=== PATIENT | male | born 1955 | race Caucasian/White ===

== ENCOUNTER 2024-10-14 12:11 | Emergency (ER) | payer MEDICARE, SELFPAY ==
[2024-10-14 12:15] VITALS: BP 156/72; PULSE 76; RESP 13; TEMP 36.7; O2SAT 92
[2024-10-14 12:28] VITALS: BP 156/72; PULSE 76; RESP 13; TEMP 36.7; O2SAT 92
--- NOTE | 2024-10-14 12:36 | W.ED.GENAD ---
Discharge Plan Disposition Patient Disposition: Home Discharge Details Clinical Impression: Blister of foot, left, infected, Peripheral vascular disease Primary Care Provider: Anita,Local ED Provider: Keny Field Home Meds and New Rx's Prescriptions: New clindamycin HCl [Cleocin HCl] 150 mg capsule 450 mg PO Q8H 14 Days Qty: 126 0RF Continued acetaminophen-codeine [Tylenol-Codeine #2] 1 tab PO BID PRN amiodarone 200 mg tablet 200 mg PO DAILY Eliquis 5 mg tablet 5 mg PO BID aspirin 81 mg capsule 81 mg PO DAILY cholecalciferol (vitamin D3) 25 mcg (1,000 unit) capsule 50 mcg PO DAILY oxybutynin chloride 5 mg tablet 10 mg PO DAILY pravastatin 40 mg tablet 40 mg PO DAILY prednisone 10 mg tablet 10 mg PO DAILY Ozempic 2 mg/dose (8 mg/3 mL) pen injector 2 mg subcut QWEEK Rx Instructions: for 4 weeks tamsulosin [Flomax] 0.4 mg capsule 0.4 mg PO DAILY venlafaxine 150 mg capsule,extended release 24hr 150 mg PO DAILY Discharge Instructions Instructions: Wound Infection Additional Instructions: You were seen in the emergency department for your foot swelling and redness. You have a blister and concerns for the possibility of a diabetic foot ulcer. We discussed whether or not to obtain an MRI scan and blood work. You elected to try antibiotics alone. As we discussed if you develop pain fevers streaking signs of infection or any foul-smelling drainage from your wound please return to the emergency department. Otherwise please follow-up with your primary care provider next week. Please take these antibiotics as directed. Discharge Data Discharge Date/Time-TO BE ENTERED AT DEPARTURE: 10/14/24 13:39 HPI General Date/Time Provider Initiated Documentation: 10/14/24 12:36. HPI Narrative: MDM This is an overall very well-appearing normothermic and not tachycardic 69-year-old male with peripheral vascular disease and blisters to the base of his 2nd and 3rd toes concern for the possibility of early cellulitis for which patient will receive clindamycin. Patient and his and I had multiple conversations concerning his evaluation and management to the emergency department. I advised my recommendation was to obtain an MRI inflammatory markers and labs prior to IV antibiotics to assess for signs of osteomyelitis or deeper space infection given his history of peripheral vascular disease and his obvious blisters. He did not clinically have signs of a diabetic foot ulcer though that was hard to assess deeper given the overlying blisters from his recent increased activities and rubber boots walking on rocks in streams. It was the patient's strong preference to avoid a prolonged emergency department stay as [place] [employer] He plans to return home to [place] at the end of the week where he will be able to follow-up with primary care provider. I did not think it was unreasonable to provide him with a dose of clindamycin orally in the emergency department prior to a 14-day prescription to cover him empirically for early cellulitis and the possibility of an underlying diabetic foot ulcer. He certainly no pain out of proportion to suggest necrotizing soft tissue infection. No calf tenderness to suggest DVT so I do not believe that he required a duplex study. I considered sepsis however the patient had reassuring vitals and was well-appearing so I did not feel he required empiric antibiotics nor blood cultures. His foot was warm and well-perfused so not concern for critical limb ischemia so I did not feel he requires CT angiogram of his abdomen pelvis with runoffs. The absence of any significant trauma my suspicion was low for fracture. I was planning on obtaining an x-ray to assess for possibility of soft tissue gas but patient and preferred to be discharged. We discussed at length that patient is to return to the ED if he developed any worsening pain streaking signs of infection fevers or systemic symptoms. Given that he is not been nauseous or vomiting I feel he is appropriate for an empiric trial of discharge with expectant outpatient management on oral antibiotics. HPI This is a patient with a history of diabetes presenting with a blister on his foot. The patient reports a large callus on his foot, which he suspects might be infected. The callus was previously treated by a burner machine operator, but he believes it was not adequately padded. Today, he noticed a new blister and some streaking that began this morning. He does not experience any pain or sensation in the area due to neuropathy. He has been engaging in daily fishing activities and has not had any fevers. His last recorded temperature was 97 degrees. He also mentions a minor drainage from the blister, which he describes as yellowish water, but notes that there is no presence of pus. He has been walking on rocks and other uneven surfaces while fishing [place] the river. He had his left big toe amputated in 11/2023. His most recent blood sugar level was 110, and his A1c is well-controlled at 5.4. PAST SURGICAL HISTORY: Left big toe amputation in 11/2023 Exam General: Well-appearing in no acute distress speaking in complete sentences. Head: Normocephalic, atraumatic. Eye: Extraocular eye movements intact. No conjunctival injection. No scleral icterus. Ear, nose, mouth, throat: Grossly normal inspection. Normal voice, handling secretions normally. Neck: Trachea midline. Cardiovascular: Well-perfused distal extremities. Respiratory: Nonlabored respiration. Gastrointestinal: Nondistended abdomen. Musculoskeletal: Left foot: Left foot warm well-perfused cap refill less than 2 seconds left toes. Palpable DP and PT pulses. On the plantar surface of the left foot just at the base of the third toe there are 2 blisters with mild surrounding erythema. No open ulcers. More proximally on the mid tibial there is some streaking signs of infection as shown in the close as follows: Skin: Normal for age and race, grossly normal temperature and turgor. No acute rash. Neurologic: Alert and appropriate, no apparent acute deficits. Psychiatric: Mood and manner are appropriate. Grooming and personal hygiene are appropriate. Related Data Home Medications ?Medication ?Instructions ?Recorded ?Confirmed acetaminophen-codeine 1 tab PO BID PRN 10/14/24 10/14/24 amiodarone 200 mg tablet 200 mg PO DAILY 10/14/24 10/14/24 apixaban 5 mg tablet (Eliquis) 5 mg PO BID 10/14/24 10/14/24 aspirin 81 mg capsule 81 mg PO DAILY 10/14/24 10/14/24 cholecalciferol (vitamin D3) 25 50 mcg PO DAILY 10/14/24 10/14/24 mcg (1,000 unit) capsule clindamycin HCl 150 mg capsule 450 mg (3 x 150 mg) PO Q8H 14 days 10/14/24 (Cleocin HCl) #126 caps oxybutynin chloride 5 mg tablet 10 mg PO DAILY 10/14/24 10/14/24 pravastatin 40 mg tablet 40 mg PO DAILY 10/14/24 10/14/24 prednisone 10 mg tablet 10 mg PO DAILY 10/14/24 10/14/24 semaglutide 2 mg/dose (8 mg/3 mL) 2 mg subcut QWEEK 10/14/24 10/14/24 subcutaneous pen injector (Ozempic) tamsulosin 0.4 mg capsule (Flomax) 0.4 mg PO DAILY 10/14/24 10/14/24 venlafaxine 150 mg 150 mg PO DAILY 10/14/24 10/14/24 capsule,extended release 24 hr Previous Rx's ?Medication ?Instructions ?Recorded clindamycin HCl 150 mg capsule 450 mg (3 x 150 mg) PO Q8H 14 days 10/14/24 (Cleocin HCl) #126 caps Allergies Allergy/AdvReac Type Severity Reaction Status Date / Time ibuprofen (From Motrin) Allergy Severe Anaphylaxis Verified 10/14/24 12:22 General Stated Complaint: Cellulitis WILFRID: 3 Course Vital Signs Vital signs: Vital Signs Temperature 36.7 C 10/14/24 12:15 Pulse 76 10/14/24 12:15 Respiratory Rate 13 10/14/24 12:15 Blood Pressure 156/72 H 10/14/24 12:15 Pulse Oximetry 92 10/14/24 12:15 Temperature 36.7 C 10/14/24 12:28 Temperature Source Oral 10/14/24 12:28 Pulse 76 10/14/24 12:28 Respiratory Rate 13 10/14/24 12:28 Blood Pressure 156/72 H 10/14/24 12:28 Blood Pressure Position Sitting 10/14/24 12:28 Pulse Oximetry 92 10/14/24 12:28 Oxygen Delivery Method Room Air 10/14/24 12:28 Oxygen Flow Rate 0 10/14/24 12:28 Pain Level 0 10/14/24 12:28 PFSH All Active Problems (Updated 10/14/24 @ 13:10 by Keny Field MD) Peripheral vascular disease (Chronic) Blister of foot, left, infected (Acute) Social History Smoking/Tobacco Use Status: Never Smoking risk assessment performed?: Yes Alcohol Intake: current Alcohol Intake frequency: a few times a month Drug use: Never Substance use type: does not use Do you feel safe at home: Yes Do you feel safe in your relationship?: Yes
[2024-10-14 13:27] VITALS: BP 123/67; PULSE 68; RESP 16; O2SAT 97
[2024-10-14] MEDS: Clindamycin 150 MG CAP 450 MG PO (13:27)
== END 2024-10-14 13:39 | disposition home or self-care (01) ==
PROVIDERS: Emergency Provider Emergency Medicine
DX: S90.822A Blister (nonthermal), left foot, initial encounter (principal); L08.9 Local infection of the skin and subcutaneous tissue, unspecified; E11.40 Type 2 diabetes mellitus with diabetic neuropathy, unspecified; Z79.01 Long term (current) use of anticoagulants; Z79.82 Long term (current) use of aspirin; Z79.85 Long-term (current) use of injectable non-insulin antidiabetic drugs; X58.XXXA Exposure to other specified factors, initial encounter; Y93.01 Activity, walking, marching and hiking; Y92.838 Other recreation area as the place of occurrence of the external cause
CPT/HCPCS: 99283